=== PATIENT | male | born 1985 | race Caucasian/White ===

== ENCOUNTER 2018-02-03 16:28 | Emergency (ER) | payer OTHER ==
--- NOTE | 2018-02-03 17:17 | EDPHY ---
H & P Time Seen by Provider: 02/03/18 16:56 HPI/ROS: CHIEF COMPLAINT: Low back pain HISTORY OF PRESENT ILLNESS: Patient is a 32-year-old male with previous left hip surgery who presents emergency department low back pain. Patient was extending his back over an exercise ball. He attempted to sit up and felt the spasm in his low back. He describes diffuse low back pain. He has no weakness or numbness. No incontinence of urine or stool. No previous low back injury. No recent trauma or fall. REVIEW OF SYSTEMS: 10 systems were reveiwed and are negative with the exception of the elements mentioned in the history of present illness. Past Medical/Surgical History: Includes depression, left hip surgery Smoking Status: Never smoked Physical Exam: Vitals noted GENERAL: Well-appearing, in no acute distress, alert. HEENT: Eyes normal to inspection, normal pharynx, no signs of dehydration. NECK: Normal, supple. RESPIRATORY: Clear to auscultation bilaterally, no rales, rhonchi or wheezing. CVS: Regular rate and rhythm, no rubs, murmurs, or gallops. ABDOMEN: Soft, nontender, nondistended, no organomegaly. BACK: Normal to inspection, no CVA tenderness. No spinal tenderness. Negative leg raise. SKIN: Normal color, no rash, warm, dry. No pallor. EXTREMITIES: No pedal edema, no calf tenderness, no Homans sign or cords, no joint swelling. NEURO/PSYCH: Alert and oriented, normal mood and affect, normal motor sensory exam. Constitutional: Initial Vital Signs Temperature (C) 36.8 C 02/03/18 16:39 Heart Rate 70 02/03/18 16:39 Respiratory Rate 18 02/03/18 16:39 Blood Pressure 119/68 02/03/18 16:39 O2 Sat (%) 96 02/03/18 16:39 O2 Delivery Mode Room Air Allergies/Adverse Reactions: No Known Allergies Allergy (Verified 02/03/18 16:43) Home Medications: Medication Instructions Recorded Cyclobenzaprine [Flexeril] 10 mg PO TID #15 tab 02/03/18 Lexapro 02/03/18 oxyCODONE/APAP 5/325 [Percocet 1 - 2 tab PO Q4PRN PRN #11 tab 02/03/18 5/325 (*)] Medical Decision Making ED Course/Re-evaluation: In the emergency department I discussed possible etiologies with the patient. I answered all his questions. I do not feel he needs imaging at this time. He has no signs of cauda equina syndrome or neuro surgical emergency. Patient took ibuprofen at 3:00 p.m. Patient states he drove himself to the emergency department. Patient was given a prescription of Flexeril and Percocet. He will continue to take ibuprofen. He is given warnings prior to leaving. He will follow up with worsening symptoms. Differential Diagnosis: Differential includes but is not limited to disc herniation, musculoskeletal strain, cauda equina syndrome, neuro surgical emergency, epidural mass Departure - Departure Disposition: Home, Routine, Self-Care Clinical Impression: Low back pain Qualifiers: Chronicity: acute Back pain laterality: unspecified Sciatica presence: without sciatica Qualified Code(s): M54.5 - Low back pain Condition: Good Instructions: Acute Low Back Pain (ED) Additional Instructions: Return with increasing pain, weakness, numbness, incontinence of urine or stool , fever or any other concerns. Referrals: NITO NEGRO [Primary Care Provider] - 3-4 days, if not improved Prescriptions: Cyclobenzaprine [Flexeril] 10 mg PO TID #15 tab oxyCODONE/APAP 5/325 [Percocet 5/325 (*)] 1 - 2 tab PO Q4PRN PRN #11 tab PRN Reason: For Moderate To Severe Pain
[2018-02-03 17:43] VITALS: BP 116/68
== END 2018-02-03 17:43 | disposition home or self-care (01) ==
DX: M54.5 Low back pain (principal)